=== PATIENT | female | born 1935 | race Two or more races ===

== ENCOUNTER 2018-08-08 12:11 | Emergency (ER) | payer OTHER, BC ==
[~2018-08-08] VITALS: Ht 149.9 cm; Wt 55.8 kg
[2018-08-08 12:11] VITALS: BP_SYST 134
[2018-08-08 13:20] VITALS: BP_SYST 121
== END 2018-08-08 13:25 | disposition home or self-care (01) ==
LOC: SED 12:11
DX: T50.901A Poisoning by unspecified drugs, medicaments and biological substances, accidental (unintentional), initial encounter (principal); R53.1 Weakness; I10 Essential (primary) hypertension; Z88.0 Allergy status to penicillin; Z88.2 Allergy status to sulfonamides; Z88.8 Allergy status to other drugs, medicaments and biological substances; Z90.710 Acquired absence of both cervix and uterus; Y92.89 Other specified places as the place of occurrence of the external cause
CPT/HCPCS: 99281